=== PATIENT | male | born 1955 | race Caucasian/White ===

== ENCOUNTER 2022-07-04 08:28 | Day surgery (SDC) | payer MEDICARE, BC ==
[~2022-07-04] VITALS: Ht 188 cm; Wt 104.9 kg
[2022-07-04] VITALS (8 sets, daily range): BP systolic 121–149; BP diastolic 71–79
[2022-07-04] MEDS ORDERED: ATOR40TA72 PO (08:49)
[2022-07-04] MEDS ORDERED: LIDOcaine 1% 30ml preserv. free vial ONE (09:24)
[2022-07-04] MEDS ORDERED: midazolam 1 mg/ML 2ml injection ONE (09:24)
[2022-07-04 11:39] LABS: APPEARANCE,CSF CLEAR; CSF RBC 1 /CU MM (0); CSF SUPERNATANT COLOR COLORLESS; CSF VOLUME 12 ML; CSF WBC CT 0 /CU MM (0-5); TUBE# COUNTED 3
[2022-07-04] MEDS ORDERED: pneumococcal 23-VAL P-sac vacc 25 mcg/0.5ml vial IMVAC ONE (15:00)
[2022-07-05 08:54] LABS: GLUCOSE,CSF 61 MG/DL (40-75); TOTAL PROTEIN,CSF 52 MG/DL (30-60)
[2022-07-07 21:04] LABS: CRYPTOCOCCUS ANTIGEN, CSF Negative (Negative)
[2022-07-08 20:25] LABS: VDRL, CSF Non Reactive (Non Rea:<1:1)
== END 2022-07-04 10:55 | disposition home or self-care (01) ==
LOC: SSTAY O 08:28
PROVIDERS: ATTEND Psychiatry & Neurology Neurology
DX: G61.81 Chronic inflammatory demyelinating polyneuritis (principal); G62.9 Polyneuropathy, unspecified; I10 Essential (primary) hypertension; E78.5 Hyperlipidemia, unspecified; E66.9 Obesity, unspecified; Z68.29 Body mass index [BMI] 29.0-29.9, adult; Z79.899 Other long term (current) drug therapy; Z23 Encounter for immunization
CPT/HCPCS: 36415; 62328; 82164; 82945; 84157; 86592; 86617; 87899; 89051; 90732; G0009; J3490; 77003; A4620; J2250